=== PATIENT | female | born 1950 | race Caucasian/White ===

== ENCOUNTER 2016-10-24 06:52 | Day surgery (SDC) | payer OTHER ==
[2016-10-22 09:20] VITALS: BMI 31.8
[2016-10-24] MEDS: TROPICAMIDE 1% OPHTH SOLN 15 ML BOTTLE ONE ×3 (08:00→08:10)
[2016-10-24] MEDS: CYCLOPENTOLATE 2% OPHTH SOLN 2 ML BOTTLE ONE ×3 (08:00→08:10)
[2016-10-24] MEDS: CIPROFLOXACIN 0.3% EYE DROPS 5 ML BOTTLE ONE ×3 (08:00→08:10)
[2016-10-24] MEDS: PHENYLEPHRINE 2.5% OPHTH SOLN 15 ML BOTTLE ONE ×3 (08:00→08:10)
[2016-10-24] MEDS ORDERED: MIDAZOLAM HCL 2 MG/2 ML SINGLE DOSE VIAL ONE (08:59)
[2016-10-24 10:03] VITALS: TEMP 98.1
[2016-10-24 10:36] VITALS: BP 114/69; PULSE 69
--- NOTE | 2016-10-25 07:54 | OP ---
DATE OF OPERATION: 10/24/2016 OPERATIVE PROCEDURE: Lens Phacoemulsification with Posterior Chamber Intraocular Lens Placement Left Eye PREOPERATIVE DIAGNOSIS: Visually Significant Cataract of Left Eye POSTOPERATIVE DIAGNOSIS: Visually Significant Cataract of Left Eye SURGEON: Bebeto Rodriguez M.D. ANESTHESIA: MAC ANESTHESIOLOGIST: PROCEDURE: The patient was brought to the operating room and placed under monitored anesthesia care by Anesthesia. A drop of Tetracaine was then placed over the left eye. The patient was then prepped and draped in the usual sterile manner. A speculum was then placed over the left eye. The eye was then well irrigated with copious amounts of BSS (balanced salt solution). The operating microscope was then moved into position. A paracentesis was performed using a 15 degree blade. At this point 0.5 mL of 1% preservative-free lidocaine was injected into the anterior chamber. Amvisc plus was then injected into the anterior chamber. A clear corneal incision was then formed using a 2.2 mm keratome. A capsulorrhexis was then performed in a continuous circular fashion beginning with a cystotome, completed with an Utratas forceps. Hydrodissection was then performed using BSS on a cannula. The phaco probe was then introduced through the corneal wound and the cataract was removed using the phaco chop technique. Approximately 3 seconds of absolute phaco time was used. The remaining cortex was then removed using irrigation and aspiration with an I/A probe. The capsule was then filled with regular Amvisc and the capsule was noted to be intact. A previously selected foldable posterior chamber intraocular lens was then injected into the capsule through the corneal wound using a lens injector. It was then dialed into position using a Sinskey hook. The Amvisc was then removed using irrigation and aspiration. Miostat was then injected through the paracentesis to constrict the pupil. The paracentesis and corneal wound were then hydrated and noted to be water tight. A drop of Maxitrol was then placed over the eye. The speculum was removed and clear shield was taped over the eye. The patient tolerated the procedure well and there were no surgical complications. The patient was asked to follow up in my office the next day. BEBETO RODRIGUEZ M.D. PEYMAN/[id number]
== END 2016-10-24 10:30 | disposition home or self-care (01) ==
LOC: FASU 06:52
PROVIDERS: ATTEND Ophthalmology
PROC: 08RK3JZ Replacement of Left Lens with Synthetic Substitute, Percutaneous Approach (ICD-10-PCS; principal; 2016-10-24 09:27)
DX: H26.8 Other specified cataract (principal)

== ENCOUNTER 2016-12-05 07:21 | Day surgery (SDC) | payer OTHER ==
[2016-11-30 11:24] VITALS: BMI 31.8
[2016-12-05] MEDS: CYCLOPENTOLATE 2% OPHTH SOLN 2 ML BOTTLE ONE ×3 (07:55→08:05)
[2016-12-05] MEDS: PHENYLEPHRINE 2.5% OPHTH SOLN 15 ML BOTTLE ONE ×3 (07:55→08:05)
[2016-12-05] MEDS: CIPROFLOXACIN 0.3% EYE DROPS 5 ML BOTTLE ONE ×3 (07:55→08:05)
[2016-12-05] MEDS: TROPICAMIDE 1% OPHTH SOLN 15 ML BOTTLE ONE ×3 (07:55→08:05)
[2016-12-05] MEDS ORDERED: MIDAZOLAM HCL 2 MG/2 ML SINGLE DOSE VIAL ONE (09:03)
[2016-12-05] MEDS ORDERED: ACETAMINOPHEN 325 MG TABLET (FP) ONE (09:57)
--- NOTE | 2016-12-05 10:05 | OP ---
DATE OF OPERATION: 12/05/2016 OPERATIVE PROCEDURE: Lens phacoemulsification with posterior chamber intraocular lens placement right eye. PREOPERATIVE DIAGNOSIS: Visually significant cataract of right eye. POSTOPERATIVE DIAGNOSIS: Visually significant cataract of right eye. SURGEON: Bebeto Rodriguez M.D. ANESTHESIA: MAC PROCEDURE: The patient was brought to the operating room and placed under monitored anesthesia care by Anesthesia. A drop of tetracaine was then placed over the right eye. The patient was then prepped and draped in the usual sterile manner. A speculum was then placed over the right eye. The eye was then well irrigated with copious amounts of BSS (balanced salt solution). The operating microscope was then moved into position. A paracentesis was performed using a 15 degree blade. At this point 0.5 mL of 1% preservative-free lidocaine was injected into the anterior chamber. Amvisc Plus was then injected into the anterior chamber. A clear corneal incision was then formed using a 2.2 mm keratome. A capsulorrhexis was then performed in a continuous circular fashion beginning with a cystotome and completed with Utrata forceps. Hydrodissection was then performed using BSS on a cannula. The phaco probe was then introduced through the corneal wound and the cataract was removed using the phaco chop technique. Approximately 3 seconds of absolute phaco time was used. The remaining cortex was then removed using irrigation and aspiration with an I/A probe. The capsule was then filled with regular Amvisc and the capsule was noted to be intact. A previously selected foldable posterior chamber intraocular lens was then injected into the capsule through the corneal wound using a lens injector. It was then dialed into position using a Sinskey hook. The Amvisc was then removed using irrigation and aspiration. Miostat was then injected through the paracentesis to constrict the pupil. The paracentesis and corneal wound were then hydrated and noted to be watertight. A drop of Maxitrol was then placed over the eye. The speculum was removed and clear shield was taped over the eye. The patient tolerated the procedure well and there were no surgical complications. The patient was asked to follow up in my office the next day. BEBETO RODRIGUEZ M.D. PEYMAN/[id number]
[2016-12-05] MEDS ORDERED: LIDOCAINE 1% P/F 10 MG/ML VIAL ONE (12:15)
[2016-12-05] MEDS ORDERED: TETRACAINE 0.5% OPHTH SOLN 2 ML BOTTLE ONE (12:15)
[2016-12-05] MEDS ORDERED: CARBACHOL 0.01% INTRA-OCULAR 1.5 ML VIAL ONE (12:15)
[2016-12-05] MEDS ORDERED: BSS (NA/CA/MG/K) BALANCED SALT SOLUTION OPHTH SOLN 15 ML BOTTLE ONE (12:15)
[2016-12-05 13:21] VITALS: TEMP 98
[2016-12-05 13:24] VITALS: BP 136/72; PULSE 62
== END 2016-12-05 10:30 | disposition home or self-care (01) ==
LOC: FASU 07:21
PROVIDERS: ATTEND Ophthalmology
PROC: 08RJ3JZ Replacement of Right Lens with Synthetic Substitute, Percutaneous Approach (ICD-10-PCS; principal; 2016-12-05 09:32)
DX: H26.8 Other specified cataract (principal)

== ENCOUNTER 2019-02-07 17:26 | Emergency (ER) | payer OTHER ==
--- NOTE | 2019-02-07 17:37 | PDOC ---
History of Present Illness - General Stated Complaint: PALPITATIONS History Source: Patient Exam Limitations: No Limitations - History of Present Illness Initial Comments: 02/07/19 17:36 68yF w PMHx asthma, HTN, headaches, meningioma, anxiety, intermittent irregular heart rate not on AC presenting w palpitations and chest burning. 430pm was driving on street when noted sudden onset heart tachycardia and palpitations. Pulled to side of road, experienced vision floaters, denies LOC or head trauma. Palpitations transitioned to chest heat radiating from sternum to wilam shoulders after 30m. Last episode of palpitations few years ago, no current contract lead f /u. Took tylenol for R shoulder pain at 3pm. Takes metoprolol daily to control irregular HR. Has been having nasal congestion for past 3d. Has growing lipoma anterior R shoulder for past 2mo limiting arm ROM and causing pain. Denies life stressors. Denies fever, cough, chest pain, reflux, SOB, AB pain, nausea/ vomiting. Past History - Past Medical History Allergies/Adverse Reactions: Allergies Allergy/AdvReac Type Severity Reaction Status Date / Time nabumetone [From Relafen] Allergy Severe Rash Verified 12/05/16 08:03 naproxen Allergy Severe Rash Verified 12/05/16 08:03 STEROID INJECTION Allergy Severe ELEVATED Uncoded 12/05/16 08:03 B/P, IRREGULAR HRT RATE Home Medications: Ambulatory Orders Metoprolol Succinate [Toprol XL -] 25 mg PO DAILY 10/22/16 Fluticasone Propionate [Flonase Allergy Relief] 9.9 ml NS DAILY 11/30/16 Anemia: No Asthma: Yes (SEASONAL ALLERGIES) Cancer: No Cardiac Disorders: Yes (H/O PALPITAIONS,IRREGULAR HEART BEAT) CVA: No COPD: No CHF: No Dementia: No Diabetes: No GI Disorders: Yes (HIATAL HERNIA; INTESTINAL METAPLASIA) Disorders: No HTN: Yes Hypercholesterolemia: Yes (HYPERLIPIDEMIA) Liver Disease: No Seizures: No Thyroid Disease: No - Surgical History Abdominal Surgery: Yes (VENTRAL HERNIA REPAIR) Appendectomy: No Cardiac Surgery: No Cholecystectomy: Yes Lung Surgery: No Neurologic Surgery: No Orthopedic Surgery: No - Psycho Social/Smoking Cessation Hx Smoking Status: No Smoking History: Former smoker Have you smoked in the past 12 months: No Number of Cigarettes Smoked Daily: 0 If you are a former smoker, when did you quit?: Hx Alcohol Use: Yes (OCCASIONALLY) Drug/Substance Use Hx: No Substance Use Type: Alcohol Hx Substance Use Treatment: No Review of Systems - Review of Systems Constitutional: No: Chills, Fever HEENTM: Yes: Nose Congestion. No: Eye Pain, Ear Discharge, Hearing Loss Respiratory: No: Cough, Shortness of Breath Cardiac (ROS): Yes: Palpitations. No: Chest Pain, Syncope ABD/GI: No: Abdominal Distended, Constipated, Diarrhea, Nausea, Vomiting : No: Burning, Dysuria, Frequency Musculoskeletal: Yes: Joint Pain (R shoulder). No: Back Pain Integumentary: No: Bruising, Dryness, Erythema Neurological: No: Headache, Seizure, Tingling, Tremors Psychiatric: No: Anxiety, Depression, Stressors Endocrine: No: Excessive Sweating, Flushing, Intolerance to Cold, Intolerance to Heat Hematologic/Lymphatic: No: Anemia, Blood Clots *Physical Exam - Physical Exam General Appearance: Yes: Nourished, Appropriately Dressed. No: Apparent Distress HEENT: positive: EOMI, NILAM, Normal Voice, Nasal Congestion, Hearing Grossly Normal. negative: Scleral Icterus (R), Scleral Icterus (L) Respiratory/Chest: positive: Lungs Clear, Normal Breath Sounds. negative: Chest Tender, Respiratory Distress, Crackles, Rales, Rhonchi, Stridor, Wheezing Cardiovascular: positive: Regular Rhythm, Regular Rate, S1, S2. negative: Edema , Murmur Comments:: 02/07/19 18:11 2+ radial pulses wilma Extremity: positive: Other (5cm subcutaneous fluctuant mobile soft non tender mass anterior R shoulder). negative: Swelling Integumentary: positive: Normal Color. negative: Rash Neurologic: positive: metal inspector II-XII NML intact, Fully Oriented, Alert, Normal Response, Motor Strength 5/5, Other (mild pain with L arm movement, full ROM). negative: Numbness (arm), Sensory Deficit (arm), Confused, Disoriented ED Treatment Course - LABORATORY CBC & Chemistry Diagram: 02/07/19 18:15 02/07/19 18:15 Medical Decision Making - Medical Decision Making 02/07/19 18:11 EKG shows NSR, HR 79, QTc 451, no ST changes CXR shows clear lung black, normal heart size, no effusion R shoulder XR does not show acute fracture/dislocation --- 68yF w PMHx asthma, HTN, headaches, meningioma, anxiety, intermittent irregular heart rate not on AC presenting w palpitations and chest burning likely d/t MSK strain vs anxiety Low concern for ACS (NSR EKG, neg trop) vs hyperthyroidism vs PNA (clear lungs CXR) vs anemia (normal Hgb). 5cm subcutaneous fluctuant mobile soft non tender mass anterior R shoulder likely lipoma, arm neurovascular intact. R shoulder XR does not show acute fracture/dislocation Discussed pt w Dr Meyre, noted pt had several previous episodes w negative workup, agrees with dc her home w PCP f/u DC home w PCP Dr Meyer Discharge - Discharge Information Problems reviewed: Yes Clinical Impression/Diagnosis: Heart palpitations Lipoma Qualifiers: Lipoma location: upper extremity Laterality: right Qualified Code(s): D17.21 - Benign lipomatous neoplasm of skin and subcutaneous tissue of right arm Condition: Good Disposition: HOME - Admission No - Follow up/Referral - Patient Discharge Instructions Patient Printed Discharge Instructions: DI for Palpitations Additional Instructions: You were seen for palpitations and shoulder pain. Your workup did not show anything concerning Please follow up with your primary care doctor regarding your shoulder mass and palpitations Drink lots of water. You can take tylenol or ibuprofen if you have pain Come back to ED if you have worsening chest pain, trouble breathing, cannot move your arm, or vomiting. - Post Discharge Activity
[2019-02-07 18:17] VITALS: BMI 29.2
[2019-02-07 18:30] LABS: BASO % 0.3 % (0-2.0); EOS % 2.8 % (0-4.5); HEMATOCRIT 39.8 % (32.4-45.2); HEMOGLOBIN 13.2 GM/dL (10.7-15.3); LYMPH % 17.2 % (8-40); MCH 30.7 pg (25.7-33.7); MCHC 33.1 g/dl (32.0-36.0); MEAN CELL VOLUME 92.9 fl (80-96); MEAN PLT VOLUME 9.2 fl (7.5-11.1); MONO % 7.3 % (3.8-10.2); NEUT % 72.4 % (42.8-82.8); PLATELET COUNT 228 K/MM3 (134-434); RBC 4.28 M/mm3 (3.60-5.2); RDW 13.2 % (11.6-15.6); WHITE BLOOD COUNT 9.4 K/mm3 (4.0-10.0)
[2019-02-07 18:42] LABS: INR 0.96 (0.83-1.09); PROTHROMBIN TIME (PATIENT) 11.3 SEC (9.7-13.0)
[2019-02-07 19:05] LABS: ALBUMIN 3.6 g/dl (3.4-5.0); BILIRUBIN,TOTAL 0.3 mg/dL (0.2-1); BLOOD UREA NITROGEN 19.2 mg/dL (7-18); CALCIUM 9.2 mg/dL (8.5-10.1); CREATININE 0.8 mg/dL (0.55-1.3); POTASSIUM 3.7 mmol/L (3.5-5.1); TOT PROT 6.5 g/dl (6.4-8.2)
--- NOTE | 2019-02-07 19:37 | PDOC ---
Documentation entered by Ananda Pope SCRIBE, acting as scribe for Aileen Lloyd MD. Aileen Lloyd MD: This documentation has been prepared by the Niko cornell Nirvannie, SCRIBE, under my direction and personally reviewed by me in its entirety. I confirm that the documentation accurately reflects all work, treatment, procedures, and medical decision making performed by me. Attending Attestation - Resident Resident Name: Sky Flores - ED Attending Attestation I have performed the following: I have examined & evaluated the patient, The case was reviewed & discussed with the resident, I agree w/resident's findings & plan, Exceptions are as noted - HPI HPI: 02/07/19 18:54 The patient is a year old female, with a significant past medical history of HTN , asthma, intermittent irregular heart rate (described as irregularly irregular tachycardia), who presents to the emergency department with sudden onset palpitations then a 30 minute episode of chest heat radiating up from the sternum to the shoulders. Patient notes her symptoms onset while driving at approx 4:30pm. She notes a history of palpitations (last episode a few years ago). She denies recent chest pain or shortness of breath. She denies recent fevers, chills, headache or dizziness. She denies recent nausea, vomiting, diarrhea or constipation. She denies recent dysuria, frequency, urgency or hematuria. Allergies: Nebumetone, Naproxen, Steroid injection Primary Care Physician: Dr. Meyer - Physicial Exam PE: 02/07/19 19:35 GENERAL: The patient is in no acute distress. ENT: Ears normal, nares patent, oropharynx clear without exudates. Moist mucous membranes. NECK: Normal range of motion, supple LUNGS: Breath sounds equal, clear to auscultation bilaterally. No wheezes, and no crackles. HEART:Regular rate and rhythm, normal S1 and S2 without murmur, rub or gallop. ABDOMEN: Soft, nontender, normoactive bowel sounds. EXTREMITIES: Normal range of motion, no edema. NEUROLOGICAL: Cranial nerves II through XII grossly intact. Normal speech. No focal neurological deficits. SKIN: Warm, Dry, normal turgor, no rashes or lesions noted. - Medical Decision Making 02/07/19 19:35 68-year-old female presenting to the emergency department with a complaint of an episode of palpitations followed by burning in her chest Symptoms began at approximately 4 PM. Patient has had these palpitations in the past Patient was seen and worked up by cardiology, Holter monitor, echo, EKG. Patient as a result was started on metoprolol. Currently patient states she feels better. 02/07/19 19:36 Laboratory Tests 02/07/19 02/07/19 02/07/19 18:15 18:15 18:15 Hgb 13.2 Hct 39.8 BUN 19.2 H Creatinine 0.8 Troponin I < 0.02 Case reviewed with patient's primary care physician. He would like patient to be discharged home. He would like to follow her up in the office. 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
[2019-02-07 19:39] VITALS: BP 135/68; PULSE 68; TEMP 98
--- NOTE | 2019-02-08 15:27 | EKG ---
Test Reason : Blood Pressure : / mmHG Vent. Rate : 079 BPM Atrial Rate : 079 BPM P-R Int : 178 ms QRS Dur : 084 ms QT Int : 394 ms P-R-T Axes : 040 -08 028 degrees QTc Int : 451 ms NORMAL SINUS RHYTHM NORMAL ECG WHEN COMPARED WITH ECG OF 23-JUL-2013 15:15, NO SIGNIFICANT CHANGE WAS FOUND Confirmed by MD VINSON PENG ([id number]) on 02/08/2019 3:27:34 PM Referred By: Confirmed By:JAYY VINSON MD
== END 2019-02-07 19:41 | disposition home or self-care (01) ==
LOC: JER 17:26
DX: R00.2 Palpitations (principal); D17.21 Benign lipomatous neoplasm of skin and subcutaneous tissue of right arm; I10 Essential (primary) hypertension; J45.909 Unspecified asthma, uncomplicated; Z88.6 Allergy status to analgesic agent; Z88.8 Allergy status to other drugs, medicaments and biological substances
CPT/HCPCS: 36415; 71045-TC-FY; 73030-TC-RT-FY; 80053; 84443; 84484; 85025; 85610; 93005; 93010; 99285-25

== ENCOUNTER 2019-12-02 06:02 | Day surgery (SDC) | payer OTHER ==
--- OUTSIDE RECORDS SUMMARY | 2019-11-26 13:08 | XMS ---
:1950 Author Organization [facility] Care Team Providers Name Role Phone KENDYMileOLIVIA GIGI Unavailable Unavailable Re-disclosure Warning The records that you are about to access may contain information from federally- assisted alcohol or drug abuse programs. If such information is present, then the following federally mandated warning applies: This information has been disclosed to you from records protected by federal confidentiality rules (42 CFR part 2). The federal rules prohibit you from making any further disclosure of this information unless further disclosure is expressly permitted by the written consent of the person to whom it pertains or as otherwise permitted by 42 CFR part 2. A general authorization for the release of medical or other information is NOT sufficient for this purpose. The Federal rules restrict any use of the information to criminally investigate or prosecute any alcohol or drug abuse patient.The records that you are about to access may contain highly sensitive health information, the redisclosure of which is protected by Article 27-F of the [place] State Public Health law. If you continue you may haveaccess to information: Regarding HIV / AIDS; Provided by facilities licensed or operated by the [facility] Office of Mental Health; or Provided by the [facility] Office for People With Developmental Disabilities. If such information is present, then the following [facility] mandated warning applies: This information has been disclosed to you from confidential records which are protected by state law. State law prohibits you from making any further disclosure of this information without the specific written consent of the person to whom it pertains, or as otherwise permitted by law. Any unauthorized further disclosure in violation of state law may result in a fine or assisted sentence or both. A general authorization for the release of medical or other information is NOT sufficient authorization for further disclosure. Allergies and Adverse Reactions Type Description Substance Reaction Status Data Source(s ) Food allergy No Known Food No Known Food [facility] Allergies Allergies [facility] [employer] Drug allergy No Known Drug No Known Drug [facility] Allergies Allergies [facility] [employer] Drug allergy No Known Allergies No Known [facility] Allergies [facility] Encounters Encounter Providers Location Date Indications Data Source(s ) Outpatient [address] 11/23/2019 eCW1 ([facility] 12:00:00 AM [facility] Outpatient Attender: 01/14/2019 Z86.19 [facility] [employer] ZAKI, 09:07:00 AM [facility] [employer] are BETHAdmitter: ViaBill Gennaro HAINESer: GIGI HAINES Z86.19 Outpatient Attender: ZAKI, 01/14/2019 05:00:00 Z 86.19 [facility] BETHAdmitter: AM [facility] ZAKI Corpor[employer] on BETHReferrer: GIGI HAINES Z86.19 Insurance Providers Payer name Policy type Policy ID Covered Covered republican's Policy P greg / Coverage republican ID relationship to [place] Inf ormation type [place] MEDICARE [id number] SP [id number] 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 [id number] SP [id number] MEDICARE [id number] SP [id number] GHI PPO [id number] SP [id number] Problems, Conditions, and Diagnoses Code Display Name Description Problem Type Effective Data Sour ce(s) Dates I47.1 [id number] PSVT (paroxysmal Problem 11/23/2019 eCW1 ([facility] supraventricular 12:00:00 AM [facility] tachycardia[facility]) E78.5 [id number] Hyperlipidemia, Problem 11/23/2019 eCW1 ([facility] unspecified 12:00:00 AM [facility] hyperlipidemia type [facility]) E78.5 [id number] Other and Problem 11/23/2019 eCW1 ([facility] 12:[facility]:00 [facility]) J45.909 [id number] Extrinsic asthma, Problem 11/23/2019 eCW1 (S aint unspecified asthma 12:00:00 AM Sen hs severity, EDT Medical unspecified whether Pract ice ) complicated, unspecified whether persistent I47.1 Supraventricular SUPRAVENTRICULAR Diagnosis 01/14/2019 [facility] tachycardia TACHYCARDIA 09:07:00 AM [facility] Z80.0 Family history of FAMILY HISTORY OF Diagnosis 01/14/2019 [place] malignant neoplasm MALIGNANT NEOPLASM 09:07:00 AM [facility] digestive organs OF DIGESTIVE ORGANS [facility] K57.30 Diverticulosis of DVRTCLOS OF LG INT Diagnosis 01/14/2019 [facility] large intestine W/O PERFORATION OR 09:07:[address] [facility] without perforation ABSCESS W/O EST Care or abscess without BLEEDING Corpor ation bleeding K63.5 Polyp of colon POLYP OF COLON Diagnosis 01/14/2019 [facility] umberto 09:07:[address] [facility] K31.89 Other diseases of OTHER DISEASES OF Diagnosis 01/14/2019 [facility] stomach and duodenum STOMACH AND 09:07:00 AM [facility] DUODENUM [facility] K29.50 Unspecified chronic UNSPECIFIED CHRONIC Diagnosis [address] [place] [address] gastritis without GASTRITIS WITHOUT 09:07:[address] [facility] bleeding BLEEDING [facility] Z86.010 Personal history of PERSONAL HISTORY OF Diagnosis [address] [place] [address] colonic polyps COLONIC POLYPS 09:07:00 AM [facility] ITYZ Results ID Date Data Source ECG [facility] 11/23/2019 03:13:51 AM EDT eCW1 ([facility]) Name Value Range Interpretation Code Description Data Christelle rce(s) Supporting Document(s ) ECG [facility] eCW1 ([facility]) ID Date Data Source [id number] 11/19/2019 10:00:00 AM EDT [facility] t[facility] Name Value Range Interpretation Code Description Data Christelle rce(s) Supporting Document(s ) SARS-COV-2 [facility] QL YONAS+PROBE This lab was ordered by [facility] and reported by [facility]. ID Date Data Source [id number] 11/12/2019 10:00:00 AM EDT [facility] Name Value Range Interpretation Code Description Data Christelle rce(s) Supporting Document(s ) SARS-COV-2 [facility] QL YONAS+PROBE This lab was ordered by [facility] and [facility]. ID Date Data Source [id number] 11/05/2019 10:15:00 AM EDT [facility] Name Value Range Interpretation Code Description Data Christelle rce(s) Supporting Document(s ) SARS-COV-2 [facility] QL YONAS+PROBE This lab was ordered by [facility] and reported by [facility]. ID Date Data Source [id number] 10/29/2019 09:00:00 AM EDT [facility] Name Value Range Interpretation Code Description Data Christelle rce(s) Supporting Document(s ) SARS-COV-2 [facility] QL YONAS+PROBE This lab was ordered by [facility] and reported by [employer]. ID Date Data Source [id number] 10/21/2019 08:30:00 AM EDT [facility] Name Value Range Interpretation Code Description Data Christelle rce(s) Supporting Document(s ) SARS-COV-2 [facility] QL YONAS+PROBE This lab was ordered by [facility] and reported by [facility]. ID Date Data Source [id number] 10/14/2019 10:45:00 AM EDT [facility] Name Value Range Interpretation Code Description Data Christelle rce(s) Supporting Document(s ) SARS-COV-2 [facility] QL YONAS+PROBE This lab was ordered by [facility] and reported by [facility]. ID Date Data Source [id number] 10/08/2019 09:30:00 AM EDT [facility] Name Value Range Interpretation Code Description Data Christelle rce(s) Supporting Document(s ) SARS-COV-2 [facility] QL YONAS+PROBE This lab was ordered by [facility] and reported by [facility]. Procedure Vital Signs ID Date Data Source UNK Name Value Range Interpretation Code Description Data Source(s) Diastolic blood 75 mm[Hg] 75 mm[Hg] eCW1 ([facility]) Systolic blood 139 mm[Hg] 139 mm[Hg] eCW1 ([place] [facility] pressure [facility]) Heart rate 61 /min 61 /min eCW1 ([facility]) Body mass index 34.18 kg/m2 34.18 kg/m2 eCW1 (S aint (BMI) [Ratio] [facility]) Body weight 193 [lb_av] 193 [lb_av] eCW1 ([facility]) Body height 63 [in_i] 63 [in_i] eCW1 ([facility])
[2019-11-27 09:40] VITALS: BMI 31.8
--- OUTSIDE RECORDS SUMMARY | 2019-12-02 06:05 | XMS ---
:1950 Author Organization [facility] Care Team Providers Name Role Phone GIGI HAINES Unavailable Unavailable Re-disclosure Warning The records that [...] is protected by Article 27-F of the [place] State Public Health law. If you continue you may haveaccess to information: Regarding HIV / AIDS; Provided by facilities licensed or operated by the [facility] Office of Mental Health; or Provided by the [facility] Office for People With Developmental Disabilities. If such information is present, then the following [facility] mandated warning applies: This information has been [...] law may result in a fine or half-way sentence or both. A general authorization for the release of medical or other information is NOT sufficient authorization for further disclosure. Allergies and Adverse Reactions Type Description Substance Reaction Status Data Source(s ) Food allergy No Known Food No Known Food [facility] Allergies Allergies [facility] Drug allergy No Known Drug No Known Drug [facility] Allergies Allergies [facility] Care [facility] Drug allergy No Known Allergies No Known [facility] Allergies [facility] Encounters Encounter Providers Location Date Indications Data Source(s ) Outpatient [address] 11/23/2019 eCW1 ([facility] 12:00:00 AM [facility]) Outpatient Attender: 01/14/2019 Z86.19 [facility] ZAKI, 09:07:00 AM [employer] [facility] BETHAdmitter: [employer] MENDOZA HAINESHReferrer: GIGI HAINES Z86.19 Outpatient Attender: ZAKI, 01/14/2019 05:00:00 Z 86.19 [facility] BETHAdmitter: AM [facility] [employer] ZAKI Corporati on BETHReferrer: GIGI HAINES Z86.19 Insurance Providers Payer name Policy type Policy ID Covered Covered constitution party's Policy P greg / Coverage constitution party ID relationship to [employer] type [place] MEDICARE [id number] SP 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 [id number] SP [id number] MEDICARE [id number] SP [id number] GHI PPO [id number] SP [id number] Problems, Conditions, and Diagnoses Code Display Name Description Problem Type Effective Data Sour ce(s) Dates I47.1 11725122 PSVT (paroxysmal Problem 11/23/2019 eCW1 ([facility] supraventricular 12:00:00 AM [facility] tachycardia) [facility]) E78.5 [id number] Hyperlipidemia, Problem 11/23/2019 eCW1 ([facility] unspecified 12:00:00 AM [facility] hyperlipidemia type [facility]) E78.5 [id number] Other and Problem 11/23/2019 eCW1 ([facility] 12:[facility]:00 AM [facility] hyper[facility]) J45.909 [id number] Extrinsic asthma, Problem 11/23/2019 eCW1 (S aint unspecified asthma 12:00:00 AM Sen hs severity, EDT Medical unspecified whether Pract ice PC) complicated, unspecified whether persistent I47.1 Supraventricular SUPRAVENTRICULAR Diagnosis 01/14/2019 [facility] tachycardia TACHYCARDIA 09:07:00 AM [facility] tipple.me Z80.0 Family history of FAMILY HISTORY OF Diagnosis 01/14/2019 [place] malignant neoplasm MALIGNANT NEOPLASM 09:07:00 AM [facility] digestive organs OF DIGESTIVE ORGANS tipple.me K57.30 Diverticulosis of DVRTCLOS OF LG INT Diagnosis 01/14/2019 [place] large intestine W/O PERFORATION OR 09:07:00 AM [facility] without perforation ABSCESS W/O EST Care or abscess without BLEEDING Corpor ation bleeding K63.5 Polyp of colon POLYP OF COLON Diagnosis 01/14/2019 [facility] umberto 09:07:00 AM [facility] tipple.me K31.89 Other diseases of OTHER DISEASES OF Diagnosis 01/14/2019 [place] stomach and duodenum STOMACH AND 09:07:00 AM [facility] DUODENUM tipple.me K29.50 Unspecified chronic UNSPECIFIED CHRONIC Diagnosis 019 [place] gastritis without GASTRITIS WITHOUT 09:07:00 AM [facility] bleeding BLEEDING tipple.me Z86.010 Personal history of PERSONAL HISTORY OF Diagnosis 019 [place] colonic polyps COLONIC POLYPS 09:07:00 AM [facility] Results ID Date Data Source [id number] 11/28/2019 12:11:00 PM EDT [facility] Name Value Range Interpretation Description Data Sup porting Code Source(s) Document(s ) SARS [facility] coronavirus 2 RNA This lab was ordered by [facility] and reported by [facility]. ID Date Data Source [id number] 11/27/2019 09:10:00 AM EDT [facility] Name Value Range Interpretation Code Description Data Christelle rce(s) Supporting Document(s ) SARS-COV-2 [facility]P Diagnostics QL YONAS+PROBE This lab was ordered by [facility] and reported by [facility]. ID Date Data Source ECG [facility] 11/23/2019 03:13:51 AM EDT eCW1 ([facility] Name Value Range Interpretation Code Description Data Christelle rce(s) Supporting Document(s ) ECG [facility] eCW1 ([facility]) ID Date Data Source [id number] 11/19/2019 10:00:00 AM EDT [facility] Name Value Range Interpretation Code Description Data Christelle rce(s) Supporting Document(s ) SARS-COV-2 [facility] QL YONAS+PROBE This lab was ordered by [facility] and reported by [facility]. ID Date Data Source [id number] 11/12/2019 10:00:00 AM EDT [facility] Name Value Range Interpretation Code Description Data Christelle rce(s) Supporting Document(s ) SARS-COV-2 [facility] QL YONAS+PROBE This lab was ordered by [facility] and reported by [facility]. ID Date Data Source [id number] 11/05/2019 10:15:00 AM EDT [facility] Name Value Range Interpretation Code Description Data Christelle rce(s) Supporting Document(s ) SARS-COV-2 [facility] QL YONAS+PROBE This lab was ordered by [facility] and reported by [facility]. ID Date Data Source [id number] 10/29/2019 09:00:00 AM EDT [facility] Name Value Range Interpretation Code Description Data Christelle rce(s) Supporting Document(s ) SARS-COV-2 [facility] QL YONAS+PROBE This lab was ordered by [facility] and reported by [employer] [place]. ID Date Data Source [id number] 10/21/2019 08:30:00 AM EDT [facility] Name Value Range Interpretation Code Description Data Christelle rce(s) Supporting Document(s ) SARS-COV-2 [facility] QL YONAS+PROBE This lab was ordered by [facility] and reported by [facility]. ID Date Data Source [id number] 10/14/2019 10:45:00 AM EDT [facility] Name Value Range Interpretation Code Description Data Christelle rce(s) Supporting Document(s ) SARS-COV-2 [facility] QL YONAS+PROBE This lab was ordered by [facility] and reported by [employer] YEIMI. ID Date Data Source [id number] 10/08/2019 09:30:00 AM EDT [facility] Name Value Range Interpretation Code Description Data Christelle rce(s) Supporting Document(s ) SARS-COV-2 [facility] QL YONAS+PROBE This lab was ordered by [facility] and reported by [employer] YEIMI. Procedure Vital Signs ID Date Data Source UNK Name Value Range Interpretation Code Description Data Source(s) Diastolic blood 75 mm[Hg] 75 mm[Hg] eCW1 (Irvin nt pressure [facility]) Systolic blood 139 mm[Hg] 139 mm[Hg] eCW1 ([place] t pressure [facility]) Heart rate 61 /min 61 /min eCW1 ([facility]) Body mass index 34.18 kg/m2 34.18 kg/m2 eCW1 (S aint (BMI) [Ratio] [facility]) Body weight 193 [lb_av] 193 [lb_av] eCW1 ([facility]) Body height 63 [in_i] 63 [in_i] eCW1 ([facility])
[2019-12-02] MEDS ORDERED: LIDOCAINE HCL 2% (20ML MULTI-DOSE VIAL) ONE (07:10)
[2019-12-02] MEDS ORDERED: MIDAZOLAM HCL 2 MG/2 ML SINGLE DOSE VIAL ONE (07:18)
[2019-12-02] MEDS ORDERED: PROPOFOL 20 ML ONE (07:18)
[2019-12-02] MEDS ORDERED: SUCCINYLCHOLINE CHLORIDE 200 MG/10 ML SYRINGE ONE (07:18)
[2019-12-02] MEDS ORDERED: LIDOCAINE HCL 2% (50ML VIAL) NR ONE (07:48)
[2019-12-02] MEDS ORDERED: ONDANSETRON 4 MG/2 ML VIAL ONE (07:58)
[2019-12-02] MEDS ORDERED: DEXAMETHASONE SOD PHOSPHATE 4 MG/1 ML VIAL ONE (07:58)
[2019-12-02 08:31] VITALS: TEMP 98
--- NOTE | 2019-12-02 08:46 | OP ---
DATE OF OPERATION: 12/02/2019 PREOPERATIVE DIAGNOSIS: Right carpal tunnel syndrome. POSTOPERATIVE DIAGNOSIS: Right carpal tunnel syndrome. OPERATIVE PROCEDURE: Right carpal tunnel release. ANESTHESIA: Local with sedation. COMPLICATIONS: None. ESTIMATED BLOOD LOSS: Minimal. INDICATIONS FOR PROCEDURE: The patient is a 69-year-old female with the above finding indicated for operative treatment. Risks, benefits and alternatives were discussed with her at length and proper informed consent was obtained. PROCEDURE: After proper identification of patient and correct operative site, patient was brought to the operating room, placed supine on the table, prominences well padded. Sedation and local anesthesia were given. Right upper extremity was prepped and draped in the usual sterile fashion. Well-padded tourniquet was placed through a sterile prep. Esmarch bandage to exsanguinate the right upper extremity. Tourniquet was inflated to 250 mmHg. Longitudinal incision was made in the proximal aspect of the palm. Incision was taken sharply through the skin with blunt and sharp dissection through the subcutaneous tissue. Palmar fascia was divided longitudinally. Transverse carpal ligament was divided longitudinally along with the distal 4 cm of the antebrachial fascia under direct visualization with loupe magnification. This provided complete release of the median nerve at the wrist. The wound was irrigated and repaired with 5-0 fast-absorbing plain gut sutures. Sterile dressings were applied. Patient was brought to the recovery room in stable condition. She tolerated the procedure well. MORENITA BORJAS M.D. [id number]
[2019-12-02 09:06] VITALS: BP 130/70; PULSE 58
[2019-12-02] MEDS ORDERED: oxyCODONE HCL 5 MG TABLET PO PRN ×2 (13:25)
[2019-12-02] MEDS ORDERED: ONDANSETRON 4 MG/2 ML VIAL IVPUSH PRN (13:25)
[2019-12-02] MEDS ORDERED: LACTATED RINGERS SOLUTION 1,000 ML IV SCH (13:30)
== END 2019-12-02 08:50 | disposition home or self-care (01) ==
LOC: FASU 06:02
PROVIDERS: ATTEND Orthopaedic Surgery Hand Surgery
PROC: 01N50ZZ Release Median Nerve, Open Approach (ICD-10-PCS; principal; 2019-12-02 07:53)
DX: G56.01 Carpal tunnel syndrome, right upper limb (principal)

== ENCOUNTER 2020-03-17 06:58 | Day surgery (SDC) | payer OTHER ==
[2020-03-14 10:07] VITALS: BMI 31.8
[2020-03-17] MEDS ORDERED: LIDOCAINE HCL 1%, 10 MG/ML (20ML VIAL) ONE (09:17)
[2020-03-17] MEDS ORDERED: LIDOCAINE HCL/PF 2% SDV 5ML VIAL ONE (09:22)
[2020-03-17] MEDS ORDERED: MIDAZOLAM HCL 2 MG/2 ML SINGLE DOSE VIAL ONE (09:23)
[2020-03-17] MEDS ORDERED: PROPOFOL 20 ML ONE (09:23)
[2020-03-17] MEDS ORDERED: ceFAZolin SODIUM 1 GM VIAL ONE (09:26)
[2020-03-17] MEDS ORDERED: ONDANSETRON 4 MG/2 ML VIAL ONE (09:58)
[2020-03-17] MEDS ORDERED: BUPIVACAINE HCL/PF 0.5% (5 MG/ML) 30 ML VIAL IJ ONE (10:02)
[2020-03-17 10:49] VITALS: TEMP 97.8
[2020-03-17 10:53] VITALS: BP 128/61; PULSE 64
== END 2020-03-17 11:25 | disposition home or self-care (01) ==
LOC: FASU 06:58
PROVIDERS: ATTEND Orthopaedic Surgery
PROC: 01N50ZZ Release Median Nerve, Open Approach (ICD-10-PCS; principal; 2020-03-17 09:49)
DX: G56.01 Carpal tunnel syndrome, right upper limb (principal)
CPT/HCPCS: 88304-TC